=== PATIENT | female | born 1950 | race Caucasian/White ===

== ENCOUNTER → 2019-04-29 | Outpatient (CLI) | payer MEDICARE ==
--- NOTE | 2019-04-29 14:18 | CARD ---
MR#: [id number] Date of Study: 04/29/2019 Ordering Physician: ELPIDIO GERARD, Referring Physician: ELPIDIO GERARD, Tech: Roseline Frankel APPROVED REPORT EXAM: Two-dimensional and M-mode echocardiogram with Doppler and color Doppler. Other Information Quality : AverageHR: 63bpm INDICATION Hypertension/HCVD RISK FACTORS Hypertension Hyperlipidemia Diabetes Smoking 2D DIMENSIONS RVDd2.9 (2.9-3.5cm)Left Atrium(2D)3.9 (1.6-4.0cm) IVSd1.2 (0.7-1.1cm)Aortic Root(2D)2.5 (2.0-3.7cm) LVDd5.4 (3.9-5.9cm)LVOT Diameter2.0 (1.8-2.4cm) PWd1.1 (0.7-1.1cm)LVDs4.1 (2.5-4.0cm) FS (%) 22.6 %SV62.5 ml LVEF(%)45.1 (>50%) Aortic Valve AoV Peak Fred.189.0cm/sAoV VTI43.9cm AO Peak GR.14.3mmHgLVOT Peak Fred.157.5cm/s LVOT VTI 41.17cmAO Mean GR.8mmHg ROBERT (VMAX)2.22du9JVG (VTI)3.07cm2 Mitral Valve MV E Lvfobtey099.1cm/sMV DECEL GNVO433eq MV A Nzfoxvrm76.0cm/sMV E Mean Gr.2mmHg MV LMD79bqC/A Ratio1.2 MVA (PHT)3.35cm2 TDI E/Lateral E'12.8E/Medial E'13.4 Pulmonary Valve PV Peak Sbmzjmft73.2cm/sPV Peak Grad.2mmHg Tricuspid Valve TR P. Viaqkign255zg/sRAP IZOLJPZO1rxGr TR Peak Gr.85xoKePWGE34mrVs Pulmonary Vein S1 Riuninhe57.0cm/sD2 Ikqufhni16.8cm/s PVa vwyfkahr717efms LEFT VENTRICLE The left ventricle is normal size. There is mild concentric left ventricular hypertrophy. The left ve ntricular systolic function is normal. The Ejection Fraction is 65%. There is normal LV segmental wal l motion. The left ventricular diastolic function and filling is normal for age. RIGHT VENTRICLE The right ventricle is normal size. There is normal right ventricular wall thickness. The right ventr icular systolic function is normal. ATRIA The left atrium size is normal. The right atrium size is normal. The interatrial septum is intact wit h no evidence for an atrial septal defect or patent foramen ovale as noted on 2-D or Doppler imaging. AORTIC VALVE The aortic valve is not well visualized. Doppler and Color Flow revealed no significant aortic regurg itation. There is no significant aortic valvular stenosis. MITRAL VALVE Mitral annular calcification is moderate. There is no evidence of mitral valve prolapse. There is no mitral valve stenosis. There is a mean pressure gradient of 2.2 mmHg. Doppler and Color-flow revealed trace mitral regurgitation. TRICUSPID VALVE The tricuspid valve is normal in structure and function. Doppler and Color Flow revealed trace tricus pid regurgitation with an estimated PAP of 43 mmHg. There is no tricuspid valve stenosis. PULMONIC VALVE The pulmonic valve is not well visualized. Doppler and Color Flow revealed no pulmonic valvular regur gitation. GREAT VESSELS The aortic root is normal in size. The IVC is normal in size and collapses >50% with inspiration. PERICARDIAL EFFUSION There is no evidence of significant pericardial effusion. Critical Notification Critical Value: No <Conclusion> The left ventricular systolic function is normal. The Ejection Fraction is 65%. There is normal LV segmental wall motion. Trace mitral regurgitation. Trace tricuspid regurgitation with an estimated PAP of 43 mmHg. There is no evidence of significant pericardial effusion. Signed by : Elpidio Gerard, Electronically Approved : 04/29/2019 14:17:48
== END | disposition home or self-care (01) ==
LOC: ECHO 11:18
PROVIDERS: ATTEND Internal Medicine Cardiovascular Disease
DX: I34.8 Other nonrheumatic mitral valve disorders (principal); I11.9 Hypertensive heart disease without heart failure; E78.5 Hyperlipidemia, unspecified; E11.9 Type 2 diabetes mellitus without complications; F17.200 Nicotine dependence, unspecified, uncomplicated
CPT/HCPCS: 93306

== ENCOUNTER → 2020-03-23 | Outpatient (CLI) | payer MEDICARE ==
[~2020-03-23] MED LIST: AMLO-187 PO; CITA20TA6 PO; LABE200T4 PO; METF10007 PO; NITR0.4T24 SL; REGADENOSON 0.4 MG/5 ML DISP.SYRIN. IV ONE; SPIR100T4 PO; VIT1CAPS12 PO
[2020-03-23 10:14] LABS: CALCIUM 8.5 mg/dL (8.5-10.1); CREATININE 0.8 mg/dL (0.6-1.0); GFR 70.7; POTASSIUM 4.1 mmol/L (3.5-5.1)
== END ==
LOC: NM 09:52
PROVIDERS: ATTEND Internal Medicine Cardiovascular Disease
DX: R07.9 Chest pain, unspecified (principal)
CPT/HCPCS: 36415; 78452; 80048; 93017; A9500; J2785

== ENCOUNTER → 2020-05-07 | Outpatient (CLI) | payer MEDICARE ==
[~2020-05-07] MED LIST changes: -REGADENOSON 0.4 MG/5 ML DISP.SYRIN. IV ONE
--- NOTE | 2020-05-07 13:22 | CARD ---
MR#: [id number] Date of Study: 05/07/2020 Ordering Physician: ELPIDIO CUELLO, Referring Physician: ELPIDIO CUELLO Tech: Tarah Dolan RDCS APPROVED REPORT EXAM: Two-dimensional and M-mode echocardiogram with Doppler and color Doppler. Other Information Quality : Good INDICATION Hypertension/HCVD 2D DIMENSIONS RVDd3.1 (2.9-3.5cm)Left Atrium(2D)4.4 (1.6-4.0cm) IVSd1.3 (0.7-1.1cm)Aortic Root(2D)2.5 (2.0-3.7cm) LVDd5.0 (3.9-5.9cm)LVOT Diameter2.1 (1.8-2.4cm) PWd1.5 (0.7-1.1cm)LVDs2.1 (2.5-4.0cm) FS (%) 30.0 %SV106.3 ml LVEF(%)60.0 (>50%) Aortic Valve AoV Peak Fred.164.0cm/sAoV VTI36.5cm AO Peak GR.10.8mmHgLVOT Peak Fred.148.2cm/s AO Mean GR.6mmHgAVA (VMAX)3.18cm2 ROBERT (VTI)3.60cm2 Mitral Valve MV E Djvotuuv143.2cm/sMV DECEL GRXC962fs MV A Wxliwcbr961.4cm/sE/A Ratio1.3 Tricuspid Valve TR P. Nesypgkk116ir/sRAP LZMBGEOR5nmBh TR Peak Gr.00qdGtURQX48prPi Pulmonary Vein S1 Dnamtlnd76.2cm/sD2 Nxtyzfiz59.3cm/s LEFT VENTRICLE The left ventricle is normal size. There is mild concentric left ventricular hypertrophy. The left ve ntricular systolic function is normal and the ejection fraction is within normal range. The Ejection Fraction is 55-60%. There is normal LV segmental wall motion. Transmitral Doppler flow pattern is Gra de II-pseudonormal filling dynamics. RIGHT VENTRICLE The right ventricle is normal size. The right ventricular systolic function is normal. ATRIA The left atrium is mildly dilated. The right atrium size is normal. The interatrial septum is intact with no evidence for an atrial septal defect or patent foramen ovale as noted on 2-D or Doppler imagi ng. AORTIC VALVE Not well visualized. Doppler and Color Flow revealed no significant aortic regurgitation. There is no significant aortic valvular stenosis. MITRAL VALVE The mitral valve is calcified but opens well. Mitral annular calcification is mild to moderate. There is no evidence of mitral valve prolapse. There is no mitral valve stenosis. Doppler and Color-flow r evealed moderate mitral regurgitation. TRICUSPID VALVE The tricuspid valve is normal in structure and function. Doppler and Color Flow revealed mild tricusp id regurgitation. There is moderate pulmonary hypertension. The PA pressure was estimated at 56 mmHg. There is no tricuspid valve stenosis. PULMONIC VALVE The pulmonic valve is not well visualized. Doppler and Color Flow revealed no pulmonic valvular regur gitation. There is no pulmonic valvular stenosis. GREAT VESSELS The aortic root is normal in size. The ascending aorta is not well seen. The IVC is dilated and colla pses >50% with inspiration. PERICARDIAL EFFUSION There is no evidence of significant pericardial effusion. Critical Notification Critical Value: No <Conclusion> The left ventricular systolic function is normal and the ejection fraction is within normal range. Th e Ejection Fraction is 55-60%. There is normal LV segmental wall motion. Doppler and Color-flow revealed moderate mitral regurgitation. Doppler and Color Flow revealed mild tricuspid regurgitation. There is moderate pulmonary hypertensio n. The PA pressure was estimated at 56 mmHg. Signed by : Jeancarlos Del Cid, Electronically Approved : 05/07/2020 13:22:15
== END ==
LOC: ECHO 10:54
PROVIDERS: ATTEND Internal Medicine Cardiovascular Disease
DX: I08.1 Rheumatic disorders of both mitral and tricuspid valves (principal); I27.20 Pulmonary hypertension, unspecified; I11.9 Hypertensive heart disease without heart failure
CPT/HCPCS: 93306

== ENCOUNTER → 2021-05-03 | Outpatient (CLI) | payer MEDICARE ==
--- NOTE | 2021-05-03 15:03 | CARD ---
MR#: [id number] Date of Study: 05/03/2021 Ordering Physician: ELPIDIO GERARD, Referring Physician: ELPIDIO GERARD, Tech: Roseline Frankel, [facility] APPROVED REPORT EXAM: Two-dimensional and M-mode echocardiogram with Doppler and color Doppler. Other Information Quality : AverageHR: 74bpm INDICATION Hypertension/HCVD RISK FACTORS Diabetes Smoking 2D DIMENSIONS RVDd3.5 (2.9-3.5cm)Left Atrium(2D)4.2 (1.6-4.0cm) IVSd1.2 (0.7-1.1cm)LVDd5.3 (3.9-5.9cm) LVOT Diameter2.0 (1.8-2.4cm)PWd1.2 (0.7-1.1cm) LVDs3.0 (2.5-4.0cm)FS (%) 44.3 % SV102.5 mlLVEF(%)75.2 (>50%) Aortic Valve AoV Peak Fred.184.0cm/sAoV VTI42.0cm AO Peak GR.13.5mmHgLVOT Peak Fred.144.2cm/s LVOT VTI 35.74cmAO Mean GR.7mmHg ROBERT (VMAX)2.76jl3XXF (VTI)2.77cm2 Mitral Valve MV E Lcxcitik581.3cm/sMV E Peak Gr.143mmHg MV DECEL CHAA596duQT A Lwlcmgii60.7cm/s MV E Mean Gr.3mmHgMV LUN81sj E/A Ratio1.3MVA (PHT)4.07cm2 TDI E/Lateral E'18.3E/Medial E'20.1 Pulmonary Valve PV Peak Rrhuoooe177.7cm/sPV Peak Grad.4mmHg Tricuspid Valve TR P. Rvtvhhvj043qs/sRAP LWYSCHVO5fpJt TR Peak Gr.60ceUoDKTX04eyDc Pulmonary Vein S1 Rlgwjlat50.7cm/sD2 Afwuwbgj38.2cm/s PVa iigasrar63zeec LEFT VENTRICLE The left ventricle is normal size. There is mild concentric left ventricular hypertrophy. The left ve ntricular systolic function is normal. The Ejection Fraction is 55-60%. There is normal LV segmental wall motion. Transmitral Doppler flow pattern is Grade II-pseudonormal filling dynamics. RIGHT VENTRICLE The right ventricle is normal size. There is normal right ventricular wall thickness. The right ventr icular systolic function is normal. ATRIA The left atrium is borderline dilated. The right atrium size is normal. The interatrial septum is int act with no evidence for an atrial septal defect or patent foramen ovale as noted on 2-D or Doppler i maging. AORTIC VALVE The aortic valve is normal in structure and function. Doppler and Color Flow revealed trace aortic re gurgitation. There is no significant aortic valvular stenosis. Calculated aortic valve area is 2.68 c m2 with maximum pressure gradient of 16 mmHg and mean pressure gradient of 8 mmHg. MITRAL VALVE The mitral valve is normal in structure and function. There is no evidence of mitral valve prolapse. There is no mitral valve stenosis. Doppler and Color-flow revealed mild mitral regurgitation. TRICUSPID VALVE The tricuspid valve is normal in structure and function. Doppler and Color Flow revealed mild tricusp id regurgitation with an estimated PAP of 43 mmHg. There is no tricuspid valve stenosis. PULMONIC VALVE The pulmonic valve is not well visualized. Doppler and Color Flow revealed trace pulmonic valvular re gurgitation. GREAT VESSELS The aortic root is normal in size. The aortic root is normal in size. The IVC is normal in size and c ollapses >50% with inspiration. PERICARDIAL EFFUSION There is no evidence of significant pericardial effusion. Critical Notification Critical Value: No <Conclusion> The left ventricular systolic function is normal. The Ejection Fraction is 55-60%. There is normal LV segmental wall motion. Mild mitral regurgitation. Mild tricuspid regurgitation with an estimated PAP of 43 mmHg. There is no evidence of significant pericardial effusion. Signed by : Elpidio Gerard, Electronically Approved : 05/03/2021 15:03:16
== END ==
LOC: ECHO 13:28
PROVIDERS: ATTEND Internal Medicine Cardiovascular Disease
DX: I08.1 Rheumatic disorders of both mitral and tricuspid valves (principal); I10 Essential (primary) hypertension
CPT/HCPCS: 93306

== ENCOUNTER → 2021-06-07 | Outpatient (CLI) | payer MEDICARE ==
[2021-06-07 13:48] LABS: CALCIUM 8.1 mg/dL (8.5-10.1); CREATININE 0.9 mg/dL (0.6-1.0); GFR 61.5; POTASSIUM 3.6 mmol/L (3.5-5.1)
== END ==
LOC: LAB 13:12
PROVIDERS: ATTEND Internal Medicine Cardiovascular Disease
DX: I10 Essential (primary) hypertension (principal)
CPT/HCPCS: 36415; 80048